=== PATIENT | female | born 1965 | race Caucasian/White ===

== ENCOUNTER 2017-11-29 07:35 | Day surgery (SDC) | END 2017-11-29 13:20 | disposition home or self-care (01) ==

== ENCOUNTER 2018-03-21 07:46 | Day surgery (SDC) | END 2018-03-21 14:12 | disposition home or self-care (01) ==

== ENCOUNTER 2019-03-03 08:19 | Day surgery (SDC) | payer OTHER ==
[~2019-03-03] VITALS: Ht 149.9 cm; Wt 61.6 kg
[~2019-03-03 08:19] MED LIST: AMLO-147 PO; GABA100C14 PO
[2019-03-03 09:20] VITALS: Ht 149.9 cm; Wt 61.6 kg
[2019-03-03 09:37] VITALS: BP 146/69; PULSE 63; RESP 16
[2019-03-03] MEDS ORDERED: FENTAnyl 50 MCG/ML VIAL ONE (10:24)
[2019-03-03] MEDS ORDERED: MIDAZOLAM 1 MG/ML 2 ML INJ ONE (10:24)
[2019-03-03 10:47] VITALS: BP 129/69; RESP 16
== END 2019-03-03 12:46 | disposition home or self-care (01) ==
LOC: GIL 08:19
PROVIDERS: ATTEND Internal Medicine Gastroenterology
DX: Z12.11 Encounter for screening for malignant neoplasm of colon (principal); K64.8 Other hemorrhoids; I10 Essential (primary) hypertension
CPT/HCPCS: 45378; J2250; J3010; Z7610